=== PATIENT | female | born 1990 | race Caucasian/White ===

== ENCOUNTER 2022-09-17 23:23 | Emergency (ER) | payer BC, OTHER ==
[2022-09-18 00:31] LABS: CHLORIDE,CL 104 mmol/L (98-107); SODIUM,NA 139 mmol/L (136-145)
[2022-09-18 00:38] LABS: ESTIMATED GFR 73 mL/min (>=60)
[2022-09-18] MEDS ORDERED: Sodium Chloride 0.9% 1,000 ML IV ONE (01:50)
[2022-09-18] MEDS ORDERED: Ketorolac 30 MG/ML SDV IVPUSH ONE (01:50)
== END 2022-09-18 02:25 | disposition home or self-care (01) ==
LOC: DL.ED 23:23 → MERGE 23:23 → DL.ED 09-18 02:25
DX: N13.2 Hydronephrosis with renal and ureteral calculous obstruction (principal)
CPT/HCPCS: 36415; 74176; 80053; 81001; 81025; 83605; 85025; 87040; 96374; 99284; J1885; J7030

== ENCOUNTER 2022-11-05 16:25 | Emergency (ER) | payer BC, OTHER ==
[2022-11-05 17:14] LABS: ANION GAP 12.6 mEq/L (7-13)
== END 2022-11-05 19:56 | disposition home or self-care (01) ==
LOC: DL.ED 16:25
DX: O20.8 Other hemorrhage in early pregnancy (principal); Z3A.01 Less than 8 weeks gestation of pregnancy
CPT/HCPCS: 36415; 76817; 80053; 84702; 85025; 99284